=== PATIENT | female | born 1980 | race Caucasian/White ===

== ENCOUNTER 2018-05-25 15:27 | Outpatient (CLI) | payer OTHER ==
--- NOTE | 2018-05-25 18:15 | RAD ---
TWO VIEWS LEFT HIP 05/25/18 COMPARISON: None. HISTORY: Pain in the left hip and grinding sound when walking for two months. FINDINGS: Two views of the left hip shows no evidence of acute fracture or dislocation. No degenerative changes are seen. IMPRESSION: Unremarkable exam. POS: [facility]
--- NOTE | 2018-05-25 18:19 | RAD ---
TWO VIEWS OF THE RIGHT HIP 05/25/18 COMPARISON: None. HISTORY: Right hip pain and grinding sound for two months. FINDINGS: Two views of the right hip shows no evidence of acute fracture or dislocation. No degenerative change s are seen. No soft tissue swelling is seen. IMPRESSION: Unremarkable exam. POS: [facility]
== END 2018-05-25 15:28 | disposition home or self-care (01) ==
LOC: BICRAD 15:27
PROVIDERS: ATTEND Nurse Practitioner Family
DX: M25.551 Pain in right hip (principal); M25.552 Pain in left hip

== ENCOUNTER 2019-09-22 09:50 | Outpatient (CLI) | payer OTHER ==
--- NOTE | 2019-09-22 10:16 | RAD ---
EXAM: Two views chest PROVIDED CLINICAL HISTORY: Cough COMPARISON: 11/09/2018 FINDINGS: Cardiac and mediastinal silhouette is within normal limits. Lungs appear free of significant opacity. No pleural fluid or pneumothorax apparent. IMPRESSION: No evidence for an acute cardiopulmonary process.
== END 2019-09-22 09:51 | disposition home or self-care (01) ==
LOC: SCSRAD 09:50
PROVIDERS: ATTEND Family Medicine
DX: J40 Bronchitis, not specified as acute or chronic (principal)
CPT/HCPCS: 71046

== ENCOUNTER 2020-04-16 11:27 | Outpatient (CLI) | payer OTHER ==
--- NOTE | 2020-04-16 18:40 | CT ---
CT OF THE ABDOMEN AND PELVIS WITH IV CONTRAST: 04/16/20 INDICATION: Right lower quadrant and left lower quadrant abdominal pain. COMPARISON: None. FINDINGS: The lung bases are clear. The visualized liver, gallbladder, pancreas, adrenal glands, and spleen yelena ear within normal limits. There is a hypodense lesion involving the mid right kidney measuring 1.4 cm but cannot be further characterized on this examination. The left kidney is normal appearing. No free fluid, enlarged lymph node is evident. There is a normal appendix in the right lower quadrant. There is a mild amount of retained stool with in the sigmoid colon. Small bowel is normal in caliber. The reproductive structures, bladder, rectum, and perirectal soft tissues are unremarkable appearing. There are suspected bilateral tubal ligation devices. There are scattered mild degenerative change of the thoracolumbar spine. No definite acute osseous ab normality is evident. IMPRESSION: 1. No definite CT findings for the patient's abdominal pain. 2. Nonspecific hypodense lesion involving the mid right kidney. Recommend follow-up ultrasound f or additional characterization for cyst versus mass. 3. Mild amount of retained stool within the sigmoid colon. POS: [facility]
== END 2020-04-16 11:28 | disposition home or self-care (01) ==
LOC: SCSCT 11:27
PROVIDERS: ATTEND Nurse Practitioner Family
DX: R10.31 Right lower quadrant pain (principal); R10.32 Left lower quadrant pain; N28.9 Disorder of kidney and ureter, unspecified; K59.00 Constipation, unspecified
CPT/HCPCS: 74177

== ENCOUNTER 2020-04-29 10:58 | Outpatient (CLI) | payer OTHER ==
--- NOTE | 2020-04-29 13:22 | ULT ---
BILATERAL RENAL ULTRASOUND: Date: 04/29/2020 INDICATION: Renal mass. Follow-up CT scan 04/16/2020 which described hypodense lesion in the right kidney. FINDINGS: A cyst is seen in the mid right kidney measuring 1.0 cm. Right kidney is otherwise unremarkable. No h ydronephrosis. Left kidney appears normal. Both kidneys measure 12.5 cm length. Bladder is contracted and not evaluated. IMPRESSION: Small right renal cyst confirmed by ultrasound. POS: [facility]
== END 2020-04-29 10:59 | disposition home or self-care (01) ==
LOC: BICULT 10:58
PROVIDERS: ATTEND Nurse Practitioner Family
DX: N28.89 Other specified disorders of kidney and ureter (principal); N28.1 Cyst of kidney, acquired
CPT/HCPCS: 76770

== ENCOUNTER 2020-08-25 13:45 | Emergency (ER) | payer BC, OTHER ==
[2020-08-25] MEDS ORDERED: Ketorolac Tromethamine 30 MG/ML VIAL ONE (15:05)
[2020-08-25] MEDS ORDERED: Dexamethasone 10 MG/ML VIAL ONE (15:06)
== END 2020-08-25 15:38 | disposition home or self-care (01) ==
LOC: ERS 13:45
DX: M54.12 Radiculopathy, cervical region (principal); G62.9 Polyneuropathy, unspecified; F17.210 Nicotine dependence, cigarettes, uncomplicated
CPT/HCPCS: 96372; 99283; J1100; J1885

== ENCOUNTER 2021-07-06 12:16 | Outpatient (CLI) | payer BC | END 2021-07-06 12:17 | disposition home or self-care (01) | LOC: CT 12:16 | PROVIDERS: ATTEND Neurological Surgery | DX: M54.16 Radiculopathy, lumbar region (principal); M47.812 Spondylosis without myelopathy or radiculopathy, cervical region; Z98.890 Other specified postprocedural states | CPT/HCPCS: 72125 ==

== ENCOUNTER 2021-08-04 09:51 | Outpatient (CLI) | payer BC ==
[2021-08-05 10:24] LABS: SARS-CoV-2 PCR by NAA Not Detected (NotDetected)
== END 2021-08-04 09:52 | disposition home or self-care (01) ==
LOC: LABBT 09:51
PROVIDERS: ATTEND Neurological Surgery
DX: Z01.812 Encounter for preprocedural laboratory examination (principal); M54.12 Radiculopathy, cervical region; Z20.822 Contact with and (suspected) exposure to COVID-19
CPT/HCPCS: U0003; U0005

== ENCOUNTER 2021-08-07 05:35 | Day surgery (SDC) | payer BC ==
[2021-07-29 13:23] VITALS: BMI 34.6
[2021-08-07] MEDS ORDERED: Fentanyl 100 MCG/2 ML VIAL ONE (06:14)
[2021-08-07] MEDS ORDERED: Dexmedetomidine 200 MCG/2 ML VIAL ONE (06:14)
[2021-08-07] MEDS ORDERED: EPINEPHrine 1 MG/ML AMP ONE (06:21)
[2021-08-07] MEDS ORDERED: Bacitracin Zinc Ointment 30 gm TUBE ONE (06:21)
[2021-08-07] MEDS ORDERED: Bupivacaine PF 0.5% 30 ML VIAL ONE (06:21)
[2021-08-07] MEDS ORDERED: Thrombin 5000 UNITS/5 ML VIAL ONE (06:21)
[2021-08-07] MEDS ORDERED: ceFAZolin 2 GM/Dextrose 50 ML IVPB ONE ×2 (06:52→10:56)
[2021-08-07] MEDS ORDERED: Ondansetron PF 4 MG/2 ML Vial ONE (07:06)
[2021-08-07] MEDS ORDERED: Ketorolac Tromethamine 30 MG/ML VIAL ONE (07:06)
[2021-08-07] MEDS ORDERED: Lidocaine 1% PF 5 ML VIAL ONE (07:06)
[2021-08-07] MEDS ORDERED: Dexamethasone 20 MG/5 ML VIAL ONE (07:06)
[2021-08-07] MEDS ORDERED: PROPOFOL 200 MG/20 ML VIAL ONE (07:06)
[2021-08-07] MEDS ORDERED: Glycopyrrolate 0.2 MG/ML 5 ML SYRINGE ONE (07:06)
[2021-08-07] MEDS ORDERED: Rocuronium Bromide 10 MG/ML (10ML VIAL) ONE (07:06)
[2021-08-07] MEDS ORDERED: HYDROcodone/Acetaminophen 5/325 mg Tablet ONE (10:04)
== END 2021-08-07 11:49 | disposition home or self-care (01) ==
LOC: SDC 05:35
PROVIDERS: ATTEND Neurological Surgery
PROC: 01N10ZZ Release Cervical Nerve, Open Approach (ICD-10-PCS; principal; 2021-08-07)
DX: M54.12 Radiculopathy, cervical region (principal); M48.02 Spinal stenosis, cervical region; G89.4 Chronic pain syndrome; M81.0 Age-related osteoporosis without current pathological fracture; Z79.899 Other long term (current) drug therapy; Z88.2 Allergy status to sulfonamides; Z91.018 Allergy to other foods; Z98.1 Arthrodesis status
CPT/HCPCS: 76000; J0171; J0690; J1100; J1885; J2405; J2704; J3010; S0020